=== PATIENT | female | born 1965 | race African-American/Black ===

== ENCOUNTER 2024-04-29 20:15 | Emergency (ER) | payer SELFPAY ==
[~2024-04-29] VITALS: Ht 167.6 cm; Wt 75.0 kg
[2024-04-29 20:37] VITALS: BP 179/113; TEMP 98.4; O2SAT 100
[2024-04-29 20:39] VITALS: PULSE 85; O2SAT 100
[2024-04-29] MEDS ORDERED: TOPUD MT (22:38)
[2024-04-29] MEDS ORDERED: LIDO700A15 TP (22:38)
== END 2024-04-29 22:53 | disposition home or self-care (01) ==
LOC: ER 20:15
DX: M25.511 Pain in right shoulder (principal); I10 Essential (primary) hypertension; Z88.6 Allergy status to analgesic agent
CPT/HCPCS: 73030; 99283; A4565